=== PATIENT | female | born 1950 | race Caucasian/White ===

== ENCOUNTER → 2019-06-07 | Day surgery (SDC) | payer MEDICARE, OTHER ==
[2019-06-05 15:36] LABS: BASOPHILS % 0.4 % (0.0-1.0); EOSINOPHILS # (AUTO) 0.1 (0.0-0.4); EOSINOPHILS % 1.3 % (0.0-6.0); HEMATOCRIT 40.2 % (34.2-44.1); HEMOGLOBIN 13.1 g/dL (12.0-16.0); LYMPHOCYTES # (AUTO) 2.2 (1.0-3.2); LYMPHOCYTES % 28.7 % (18.0-39.1); MEAN CORPUSCULAR HEMOGLOBIN 29.4 pg (28-32); MEAN CORPUSCULAR HGB CONC 32.6 g/dL (31-35); MEAN CORPUSCULAR VOLUME 90.3 fL (81-99); MONOCYTES # (AUTO) 0.7 (0.2-0.8); MONOCYTES % 9.3 % (4.4-11.3); NEUTROPHILS # (AUTO) 4.7 (2.1-6.9); PLATELET COUNT 238 x10e3/uL (140-360); RED BLOOD COUNT 4.45 x10e6/uL (3.6-5.1); RED CELL DISTRIBUTION WIDTH 12.8 % (11.7-14.4)
[~2019-06-07] MED LIST: CALCIUM PO; FENTANYL CITRATE/PF 100MCG/2 ML INJ ONE; FISH OIL 1,0001 EAC2 PO; LIDOCAINE HCL 2% LOCAL INJ 5 ML SDV VIAL INJ ONE; LOSARTAN HCTZ PO; METOPROLOL SUCC50 MG PO; MIDAZOLAM HCL 2 MG/2 ML VIAL ONE; POTASSIUM PO; PRAVASTATIN SOD40 MG PO; PROPOFOL IV EMULSION 10 MG/ML 50 ML VIAL ONE; VITAMIN B-121000 MCG PO; VITAMIN C1000 MG PO; VITAMIN D32000 UNI2 PO
--- OUTSIDE RECORDS SUMMARY | 2019-06-07 06:21 | XMS REPORT ---
Author Author [facility] Address Unknown Phone Unavailable Care Team Providers Care Manager Labor Relations Name Role Phone MARIZA MEDLEY Unavailable Unavailable Problems This patient has no known problems. Allergies, Adverse Reactions, Alerts This patient has no known allergies or adverse reactions. Medications This patient has no known medications. Results Test Description Test Time Test Comments Text Results Atomic Results Result Comments U/S, THYROID 2018-11-03 14:14:00 Reason for Exam:->E04.1 FINAL REPORT Thyroid ultrasound, today HISTORY: E04.1 Comparison: None IMPRESSION:Grayscale and color Doppler imaging of the thyroid gland was performed. The right lobe measures 4.3 x 1.4 x 1.3 cm. The left lobe measures 3.9 x 1.3 x 1.1 cm. The isthmus measures 3 mm in thickness. There is mild diffuse heterogeneity of the thyroid gland. Benign cysts and benign appearing nodules are noted bilaterally. There is an 8 x 6 x 4 mm hypoechoic area with questionable irregular margins in the right lower aspect. Recommend sonographic follow-up in 12 months. Signed: Janice Khoury MDReport Verified Date/Time: 11/03/2018 14:14:44 Reading Location: [address] Radiology Reading Room -ACT 2017-12-22 08:36:00 ACTIVATED CLOTTING TIME (BEAKER) (test kser=153) 279 sec TESTED AT [place] [id number] 08:36:00* Test Item Value Reference Range Comments ACTIVATED CLOTTING TIME (BEAKER) (test ukxz=452) 323 sec TESTED AT [place] [id number] BASIC METABOLIC [id number] 08:46:00* Test Item Value Reference Range Comments SODIUM (BEAKER) (test alib=107) 139 meq/L 136-145 POTASSIUM (BEAKER) (test fuez=120) 4.0 meq/L 3.5-5.1 Specimen slightly hemolyzed CHLORIDE (BEAKER) (test zjzg=481) 107 meq/L 98-107 CO2 (BEAKER) (test tvhl=652) 20 meq/L 22-29 BLOOD UREA NITROGEN (BEAKER) (test rmfn=474) 33 mg/dL 7-21 CREATININE (BEAKER) (test thpe=041) 0.86 mg/dL 0.57-1.25 Specimen slightly hemolyzed GLUCOSE RANDOM (BEAKER) (test disz=516) 114 mg/dL 70-105 CALCIUM (BEAKER) (test uqjj=453) 9.3 mg/dL 8.4-10.2 EGFR (BEAKER) (test hxdp=7232) 66 mL/min/1.73 sq m ESTIMATED GFR IS NOT ACCURATE CREATININE CLEARANCE IN PREDICTING GLOMERULAR FILTRATION RATE. ESTIMATED GFR IS NOT APPLICABLE FOR DIALYSIS PATIENTS. CBC (HEMOGRAM ONLY)2017-12-21 08:30:00* Test Item Value Reference Range Comments WHITE BLOOD CELL COUNT (BEAKER) (test hxeu=125) 8.0 K/ L 3.5-10.5 RED BLOOD CELL COUNT (BEAKER) (test mrdr=084) 4.69 M/ L 3.93-5.22 HEMOGLOBIN (BEAKER) (test smog=623) 13.7 GM/DL 11.2-15.7 HEMATOCRIT (BEAKER) (test fkps=395) 42.2 % 34.1-44.9 MEAN CORPUSCULAR VOLUME (BEAKER) (test ecmd=174) 90.0 fL 79.4-94.8 MEAN CORPUSCULAR HEMOGLOBIN (BEAKER) (test mkoq=627) 29.2 pg 25.6-32.2 MEAN CORPUSCULAR HEMOGLOBIN CONC (BEAKER) (test aqtn=922) 32.5 GM/DL 32.2-35.5 RED CELL DISTRIBUTION WIDTH (BEAKER) (test qauc=176) 13.2 % 11.7-14.4 PLATELET COUNT (BEAKER) (test ccic=443) 230 K/CU MM 150-450 MEAN PLATELET VOLUME (BEAKER) (test hhru=602) 10.1 fL 9.4-12.3 NUCLEATED RED BLOOD CELLS (BEAKER) (test tgwc=467) 0 /100 WBC 0-0 RAD, CHEST, 2 [id number] 13:53:00Reason for Exam:->R06.02FINAL REPORT Chest x-ray, PA and lateral views Clinical History: R06.02 Comparison: None Findings: The cardiac and mediastinal contours are normal. There is no pneumothorax, richard pulmonary edema, consolidation or pleural effusion. The bony structures are unremarkable. Cholecystectomy clips are present. Impression: No acute process. Signed: Jaya Mejia ate/Time: 10/11/2017 13:53:53 Reading Location: [address] Radiology Reading Room
--- OUTSIDE RECORDS SUMMARY | 2019-06-07 06:21 | XMS REPORT | Summary of Care ---
Author Author MARIANN GARCIA Organization Unknown Address Unknown Phone Unavailable Care Team Providers Care Relay Man Name Role Phone MARIANN GARCIA Unavailable Unavailable TIM MARSH [place], SOFIA MENDEZ Unavailable Unavailable JOSELYN CROCKER MD Unavailable Unavailable TIM Perry, SOFIA Ramirez Unavailable Unavailable Unavailable Functional Status Name Dates Details Functional status health issues are not documented Status: Name Dates Details Cognitive status health issues are not documented Status: Problems Name Dates Details Esophageal reflux (530.81, K21.9) Status: Active Mastitis (611.0, N61.0) Status: Active Nonspecific finding on examination of urine (791.9, R82.90) Status: Active 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 (V72.31, Z01.419) Status: Active Visit for screening mammogram (V76.12, Z12.31) Status: Active Post-menopausal (V49.81, Z78.0) Status: Active Flu vaccine need (V04.81, Z23) Status: Active Back pain (724.5, M54.9) Status: Active History of tobacco use (V15.82, Z87.891) Status: Active Left ankle pain (719.47, M25.572) Status: Active Closed displaced fracture of second metatarsal bone of left foot, initial encounter (825.25, S92.322A) Status: Active Closed displaced fracture of third metatarsal bone of left foot, initial encounter (825.25, S92.332A) Status: Active Thoracic sprain (847.1, S23.9XXA) Status: Active Depression (311, F32.9) Status: Active Right shoulder pain (719.41, M25.511) Status: Active Supraspinatus tendonitis (726.10, M75.90) Status: Active Dysthymia (300.4, F34.1) Status: Active Pedal edema (782.3, R60.0) Status: Active Encounter for mini-mental status examination Status: Active At low risk for fall (V49.89, Z91.81) Status: Active Depression screening (V79.0, Z13.31) Status: Active Advance directive discussed with patient (V65.49, Z71.89) Status: Active COPD (chronic obstructive pulmonary disease) (496, J44.9) Status: Active Hyperlipidemia (272.4, E78.5) Status: Active Anxiety (300.00, F41.9) Status: Active Generalized body aches (780.96, R52) Status: Active Shortness of breath (786.05, R06.02) Status: Active 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 Active Potassimin TABS 2 tabs once daily * Refills: 0 Active Fish Oil 1200 MG Oral Capsule daily * Refills: 0 Active Vitamin C CAPS * Refills: 0 Active Vitamin E TABS * Refills: 0 Active Losartan Potassium-HCTZ 100-25 MG Oral Tablet TAKE 1 TABLET DAILY * Quantity: 90 Refills: 1 CROSS P.A., MARIANN * Start : 24-Feb-2018 Active Metoprolol Succinate ER 50 MG Oral Tablet Extended Release 24 Hour Take one (1) tablet(s) by mouth daily. * Quantity: 90 Refills: 1 CROSS P.A., MARIANN * Start : 19-Oct-2016 Active 100 Tablet Bottle Vitamin B-12 1000 MCG Oral Tablet TAKE 1 TABLET DAILY DIRECTED. * Refills: 0 * Start : 01-Mar-2017 Active busPIRone HCl - 15 MG Oral Tablet TAKE 1 TABLET DAILY * Quantity: 90 Refills: 1 TAY Stein MARIANN * Start : 02-Mar-2017 Active Praluent 75 MG/ML Subcutaneous Solution Auto-injector as directed * Refills: 0 Active Milliliter Stiolto Respimat 2.5-2.5 MCG/ACT Inhalation Aerosol Solution as directed * Refills: 0 Active 4 GM Inhaler Allergies and Adverse Reactions Name Dates Details Morphine Derivatives (Allergy) Status: Active Past Medical History Name Dates Details History of acute bronchitis (V12.69, Z87.09) Status: Resolved History of acute sinusitis (V12.69, Z87.09) Status: Resolved History of allergic rhinitis (V12.69, Z87.09) Status: Resolved History of bronchitis (V12.69, Z87.09) Status: Resolved History of cough Status: Resolved History of diarrhea (V12.79, Z87.898) Status: Resolved History of Dysthymic Disorder (V11.2) Status: Resolved History of edema (V13.89, Z87.898) Status: Resolved History of hoarseness (V13.9, Z87.898) Status: Resolved History of hyperlipidemia (V12.29, Z86.39) Status: Resolved History of osteopenia (V13.59, Z87.39) Status: Resolved History of pharyngitis (V12.69, Z87.09) Status: Resolved History of Productive cough (786.2, R05) Status: Resolved History of shortness of breath (V13.89, Z87.898) Status: Resolved History of shortness of breath (V13.89, Z87.898) Status: Resolved History of Sinusitis (473.9, J32.9) Status: Resolved History of urinary tract infection (V13.02, Z87.440) Status: Resolved Procedures Procedure Dates Details History of Cholecystectomy Completed History of Hysterectomy Completed History of Bladder Procedures Completed Immunization Name Dates Details Influenza on: 21-Apr-2010 Fluzone INJ Lot #: [id number] on: 01-May-2014 Family History Name Dates Details Family history of FH Unobtainable - Patient Adopted Comments: Family History Status: Active Name Dates Details No pertinent family history (V49.89, Z78.9) Status: Active Name Dates Details No pertinent family history (V49.89, Z78.9) Status: Active Social History Name Dates Details - Status: Name Dates Details Former smoker Vital Signs Date Test Result Details [id number] Physical Findings 8 Status: Comments: PHQ-9 Adult Depression Screening Physical Findings 0 Status: Comments: Alcohol Screen - How many times in the past yr have you had 5 (for M) or 4 (for F) or 4 (for all > 65yrs) or more drinks in a day? [id number] BP Systolic 160 mm[Hg] Status: Comments: Location: LUE; Position: Sitting BP Diastolic 62 mm[Hg] Status: Comments: Location: LUE; Position: Sitting Height 62 in Status: Weight 226 lb Status: Body Mass Index Calculated 41.34 kg/m2 Status: Body Surface Area Calculated 2.01 m2 Status: Temperature 97.6 f Status: Comments: Method: Temporal Heart Rate 76 /min Status: Respiration Rate 15 /min Status: Physical Findings 0 Status: Comments: Pain Scale Results Date Description Value Details Results not documented Plan of Care Name Dates Details Planned Observations Planned Goals not documented Instructions Name Dates Details Instructions not documented Encounters Appointment; CARLOS MURILLO M.D. Encounter Diagnosis: Problem not documented On: 18-May-2017 13:45 Appointment; MARIANN CROSS PAlex Encounter Diagnosis: Problem not documented On: 30-Aug-2017 8:00 Appointment; MARIANN CROSS PAlex Encounter Diagnosis: Problem not documented On: 02-Sep-2017 13:45 Appointment; MARIANN CROSS PAlex Encounter Diagnosis: Problem not documented On: 22-Mar-2018 10:30 Appointment; MARIANN CROSS PShannanAShannan Encounter Diagnosis: Problem not documented On: 15-May-2018 12:45 Appointment; MARIANN CROSS PAlex Encounter Diagnosis: Problem not documented On: 30-May-2018 8:15 Appointment; MARIANN CROSS PAlex Encounter Diagnosis: Problem not documented On: 01-Jun-2018 13:30 Appointment; MARIANN CROSS PAlex Encounter Diagnosis: Problem not documented On: 02-May-2019 12:45
[2019-06-07 10:15] VITALS: BP 141/72
== END | disposition home or self-care (01) ==
LOC: OR 06:15
PROVIDERS: ATTEND Internal Medicine Gastroenterology
DX: K52.832 Lymphocytic colitis (principal); K29.70 Gastritis, unspecified, without bleeding; K21.0 Gastro-esophageal reflux disease with esophagitis; K44.9 Diaphragmatic hernia without obstruction or gangrene; K64.8 Other hemorrhoids; Z71.3 Dietary counseling and surveillance; G47.33 Obstructive sleep apnea (adult) (pediatric); J44.9 Chronic obstructive pulmonary disease, unspecified; I10 Essential (primary) hypertension; E66.01 Morbid (severe) obesity due to excess calories; Z88.6 Allergy status to analgesic agent; Z01.810 Encounter for preprocedural cardiovascular examination; Z01.812 Encounter for preprocedural laboratory examination; Z79.82 Long term (current) use of aspirin; Z68.41 Body mass index [BMI] 40.0-44.9, adult; Z87.891 Personal history of nicotine dependence
CPT/HCPCS: 36415; 43239; 45380; 85025; 93005; J2001; J2250; J2704; J3010; 45378